=== PATIENT | female | born 1990 | race African-American/Black ===

== ENCOUNTER 2020-06-28 16:30 | Emergency (ER) | payer OTHER ==
[2020-06-28 16:41] VITALS: BP 135/77; PULSE 80; TEMP 98; BMI 25.7
[2020-06-28 17:52] LABS: BASO % 0.7 % (0-2.0); EOS % 3.1 % (0-4.5); HEMATOCRIT 37.1 % (32.4-45.2); HEMOGLOBIN 12.2 GM/dL (10.7-15.3); LYMPH % 45.1 % (8-40); MCH 32.4 pg (25.7-33.7); MEAN CELL VOLUME 98.3 fl (80-96); MEAN PLT VOLUME 7.5 fl (7.5-11.1); NEUT % 43.1 % (42.8-82.8); PLATELET COUNT 250 K/MM3 (134-434); RBC 3.78 M/mm3 (3.60-5.2); RDW 13.1 % (11.6-15.6); WHITE BLOOD COUNT 4.5 K/mm3 (4.0-10.0)
[2020-06-28 18:11] LABS: POTASSIUM 3.3 mmol/L (3.5-5.1)
[2020-06-28 18:13] LABS: ALBUMIN 4.1 g/dl (3.4-5.0); CALCIUM 9.2 mg/dL (8.5-10.1)
[2020-06-28 18:14] LABS: BLOOD UREA NITROGEN 7.4 mg/dL (7-18)
[2020-06-28 18:16] LABS: CREATININE 0.7 mg/dL (0.55-1.3)
[2020-06-28 18:18] LABS: BILIRUBIN,TOTAL 0.7 mg/dL (0.2-1); TOT PROT 7.7 g/dl (6.4-8.2)
[2020-06-28 20:13] LABS: EPI CELLS 27 /uL (0-25.1); HYALINE CASTS 2 /uL (0-3.1); URINE APPEARANCE CLEAR; URINE BACTERIA 276 /uL (0-1359); URINE BILIRUBIN NEGATIVE (NEGATIVE); URINE COLOR YELLOW; URINE GLUCOSE (UA) NEGATIVE (NEGATIVE); URINE KETONE 3+ (NEGATIVE); URINE LEUK ESTERASE NEGATIVE (NEGATIVE); URINE NITRITE NEGATIVE (NEGATIVE); URINE PROTEIN NEGATIVE (NEGATIVE); URINE RBC 21 /uL (0-23.9); URINE WBC 3 /uL (0-25.8)
== END 2020-06-28 20:39 | disposition home or self-care (01) ==
LOC: JER 16:30
DX: N93.9 Abnormal uterine and vaginal bleeding, unspecified (principal)
CPT/HCPCS: 36415; 76817-TC; 80053; 81003; 84702; 85025; 86850; 86900; 86901; 87086; 99284-25

== ENCOUNTER 2021-02-13 09:37 | Inpatient (IN) | payer OTHER ==
[2021-02-13 10:37] LABS: BASO % 0.7 % (0-2.0); HEMATOCRIT 29.9 % (32.4-45.2); HEMOGLOBIN 9.9 GM/dL (10.7-15.3); LYMPH % 33.8 % (8-40); MCH 32.5 pg (25.7-33.7); MEAN CELL VOLUME 98.3 fl (80-96); MEAN PLT VOLUME 7.2 fl (7.5-11.1); MONO % 10.4 % (3.8-10.2); NEUT % 52.1 % (42.8-82.8); PLATELET COUNT 244 10^3/uL (134-434); RBC 3.04 M/mm3 (3.60-5.2); RDW 14.3 % (11.6-15.6); WHITE BLOOD COUNT 4.1 K/mm3 (4.0-10.0)
[2021-02-13 10:50] LABS: INR 0.9 (0.83-1.09); PROTHROMBIN TIME (PATIENT) 10.9 SEC (9.7-13.0)
[2021-02-13 10:52] VITALS: BMI 29.9
[2021-02-13 10:53] LABS: ACTIVATED PTT 27.8 SECONDS (25.2-36.5)
[2021-02-13 10:58] LABS: CALCIUM 7.9 mg/dL (8.5-10.1)
[2021-02-13 10:59] LABS: BLOOD UREA NITROGEN 6.8 mg/dL (7-18)
[2021-02-13 11:02] LABS: CREATININE 0.5 mg/dL (0.55-1.3)
[2021-02-13] MEDS ORDERED: OXYTOCIN 30 UNITS in 0.9% NS 30 UNIT/500 ML INFUS.BAG IVPB ONE (11:10)
[2021-02-13] MEDS ORDERED: AMPICILLIN SODIUM 2 GM VIAL ONE (11:10)
[2021-02-13] MEDS ORDERED: PROMETHAZINE HCL 25 MG/1 ML VIAL IVPB ONE (11:30)
[2021-02-13] MEDS ORDERED: ELECTROLYTE-148 SOLN 1,000 ML IV SCH (11:30)
[2021-02-13] MEDS ORDERED: DEXTROSE 5%-LACTATED RINGERS 1,000 ML IV SCH (11:30)
[2021-02-13] MEDS ORDERED: BUTORPHANOL TARTRATE 2 MG/ML VIAL IVPB ONE (11:30)
[2021-02-13] MEDS ORDERED: AMPICILLIN - 2 GM in SODIUM CHLORIDE 100 ML IVPB ONE (11:35)
[2021-02-13] MEDS ORDERED: OXYTOCIN 30 UNITS in 0.9% NS 30 UNIT/500 ML INFUS.BAG IVPB SCH (11:45)
[2021-02-13 12:43] LABS: HIV INTERPRETATION NEGATIVE (NEGATIVE)
[2021-02-13] MEDS ORDERED: AMPICILLIN SODIUM 1 GM VIAL ONE (14:41)
[2021-02-13] MEDS ORDERED: AMPICILLIN - 1 GM in SODIUM CHLORIDE 100 ML IVPB SCH (15:35)
[2021-02-13] MEDS ORDERED: BUTORPHANOL TARTRATE 2 MG/ML VIAL ONE (17:26)
[2021-02-13] MEDS ORDERED: PROMETHAZINE HCL 25 MG/1 ML VIAL ONE (17:26)
[2021-02-13] MEDS ORDERED: OXYTOCIN 20 UNITS in 0.9% NS 20 UNIT/1,000 ML INFUS.BAG IV ONE (18:32)
[2021-02-13] MEDS ORDERED: BISACODYL 10 MG SUPP.RECT RC PRN (19:24)
[2021-02-13] MEDS ORDERED: BENZOCAINE 20% 57 GM BOTTLE TP PRN (19:24)
[2021-02-13] MEDS ORDERED: BENZOCAINE 28 GM HEMORRHOIDAL OINTMENT TP PRN (19:24)
[2021-02-13] MEDS ORDERED: ACETAMINOPHEN 325 MG TABLET (FP) PO PRN (19:24)
[2021-02-13] MEDS ORDERED: METHYLERGONOVINE MALEATE 0.2 MG/1 ML AMP IM PRN (19:24)
[2021-02-13] MEDS ORDERED: WITCH HAZEL 50% (TUCKS) 40 PAD/JAR PAD TP PRN (19:24)
[2021-02-13] MEDS ORDERED: IBUPROFEN 600 MG TABLET (FP) PO PRN (19:24)
[2021-02-13] MEDS ORDERED: OXYTOCIN 20 UNITS in 0.9% NS 20 UNIT/1,000 ML INFUS.BAG IV SCH (19:30)
[2021-02-13 20:47] LABS: CORD BASE EXCESS -3.9 mmol/L (0-2); CORD HCO3 22.9 mmHg (20-29); CORD PCO2 47.2 mmHg (30-78); CORD pH 7.303 (7.14-7.44)
[2021-02-13 20:53] LABS: CORD BASE EXCESS -5.6 mmol/L (0-2); CORD PCO2 50.9 mmHg (30-78); CORD pH 7.253 (7.14-7.44)
[2021-02-14 09:22] LABS: BASO % 0.2 % (0-2.0); EOS % 0.7 % (0-4.5); HEMATOCRIT 30.2 % (32.4-45.2); LYMPH % 17.3 % (8-40); MCH 33.3 pg (25.7-33.7); MCHC 33.1 g/dl (32.0-36.0); MEAN CELL VOLUME 100.5 fl (80-96); MEAN PLT VOLUME 7.3 fl (7.5-11.1); MONO % 7.6 % (3.8-10.2); NEUT % 74.2 % (42.8-82.8); PLATELET COUNT 231 10^3/uL (134-434); RBC 3.01 M/mm3 (3.60-5.2); RDW 14.9 % (11.6-15.6); WHITE BLOOD COUNT 9.7 K/mm3 (4.0-10.0)
[2021-02-14] MEDS: FERROUS SO4 325 MG TABLET (FP) PO SCH ×2 (10:00→23:56)
[2021-02-14] MEDS ORDERED: SENNOSIDES/DOCUSATE COMBO (SENNA PLUS) TABLET (UD) PO PRN (22:00)
[2021-02-15 09:49] VITALS: BP 132/77; PULSE 98; TEMP 98.9
[2021-02-15] MEDS: FERROUS SO4 325 MG TABLET (FP) PO SCH (10:30)
== END 2021-02-15 14:55 | disposition home or self-care (01) | DRG 560 ==
LOC: JLDR 09:37 → J3W 21:17
PROVIDERS: ADMIT Obstetrics & Gynecology; ATTEND Obstetrics & Gynecology
PROC: 3E033VJ Introduction of Other Hormone into Peripheral Vein, Percutaneous Approach (ICD-10-PCS; 2021-02-13)
PROC: 10E0XZZ Delivery of Products of Conception, External Approach (ICD-10-PCS; principal; 2021-02-14)
DX: O99.824 Streptococcus B carrier state complicating childbirth (principal); B95.1 Streptococcus, group B, as the cause of diseases classified elsewhere; O99.284 Endocrine, nutritional and metabolic diseases complicating childbirth; E03.9 Hypothyroidism, unspecified; O99.02 Anemia complicating childbirth; D64.9 Anemia, unspecified; Z3A.39 39 weeks gestation of pregnancy; Z37.0 Single live birth
CPT/HCPCS: 36415; 36600; 59409; 80048; 82803; 85025; 85610; 85730; 86780; 86850; 86900; 86901; 87389; C9803; U0003; U0005